=== PATIENT | male | born 1960 | race Native Hawaiian/Other Pacific Islander ===

== ENCOUNTER 2018-01-23 10:33 | Outpatient (CLI) | payer OTHER | END 2018-01-23 22:29 | disposition home or self-care (01) | LOC: RAD 10:33 | DX: M54.5 Low back pain (principal) ==

== ENCOUNTER 2018-09-21 09:44 | Outpatient (CLI) | payer OTHER | END 2018-09-21 22:14 | disposition home or self-care (01) | LOC: MRI 09:44 | DX: M47.816 Spondylosis without myelopathy or radiculopathy, lumbar region (principal) ==

== ENCOUNTER 2019-04-26 13:17 | Outpatient (CLI) | payer OTHER | END 2019-04-26 19:12 | disposition home or self-care (01) | LOC: RAD 13:17 | DX: Z86.2 Personal history of diseases of the blood and blood-forming organs and certain disorders involving the immune mechanism (principal) ==

== ENCOUNTER 2020-12-23 15:40 | Outpatient (CLI) | payer OTHER | END 2020-12-23 22:12 | disposition home or self-care (01) | LOC: INF 15:40 | PROVIDERS: ATTEND Internal Medicine | DX: Z23 Encounter for immunization (principal) | CPT/HCPCS: 96372 ==

== ENCOUNTER 2021-01-14 15:31 | Outpatient (CLI) | payer OTHER | END 2021-01-14 22:03 | disposition home or self-care (01) | LOC: INF 15:31 | PROVIDERS: ATTEND Internal Medicine | DX: Z23 Encounter for immunization (principal) | CPT/HCPCS: 96372 ==

== ENCOUNTER 2021-10-20 08:07 | Outpatient (CLI) | payer OTHER | END 2021-10-20 18:54 | disposition home or self-care (01) | LOC: RAD 08:07 | PROVIDERS: ATTEND Nurse Practitioner Family | DX: I10 Essential (primary) hypertension (principal); E78.5 Hyperlipidemia, unspecified; R06.2 Wheezing ==

== ENCOUNTER 2023-03-15 09:37 | Emergency (ER) | payer OTHER ==
[~2023-03-15] VITALS: Ht 182.9 cm; Wt 104.3 kg
[2023-03-15 09:40] VITALS: TEMP 98
[2023-03-15 11:11] VITALS: BP 142/80
== END 2023-03-15 11:19 | disposition home or self-care (01) ==
LOC: ED 09:37
PROC: 0HQ0XZZ Repair Scalp Skin, External Approach (ICD-10-PCS; principal; 2023-03-15)
DX: S01.91XA Laceration without foreign body of unspecified part of head, initial encounter (principal); M54.2 Cervicalgia; W22.8XXA Striking against or struck by other objects, initial encounter
CPT/HCPCS: 90471; 90715; 99283

== ENCOUNTER 2023-06-09 08:49 | Outpatient (CLI) | payer OTHER | END 2023-06-09 19:08 | disposition home or self-care (01) | LOC: RESP 08:49 | PROVIDERS: ATTEND Nurse Practitioner Family | DX: R06.2 Wheezing (principal) ==

== ENCOUNTER 2023-06-20 13:24 | Outpatient (CLI) | payer OTHER | END 2023-06-20 20:48 | disposition home or self-care (01) | LOC: RAD 13:24 | PROVIDERS: ATTEND Nurse Practitioner Family | DX: R06.2 Wheezing (principal) ==